=== PATIENT | female | born 2005 | race Caucasian/White ===

== ENCOUNTER → 2025-05-20 10:29 | Outpatient (CLI) | payer OTHER, SELFPAY | LOC: WC 10:30 | PROVIDERS: Family Provider Family Medicine; PCP Family Medicine; Referring Provider Family Medicine; Visit Provider Surgery | DX: T81.89XA Other complications of procedures, not elsewhere classified, initial encounter (principal); S91.301A Unspecified open wound, right foot, initial encounter; L98.8 Other specified disorders of the skin and subcutaneous tissue; R23.4 Changes in skin texture; L84 Corns and callosities; L08.9 Local infection of the skin and subcutaneous tissue, unspecified | CPT/HCPCS: 11042; 87070; 87075; 87077; 87186; 87205; 99213 ==